=== PATIENT | female | born 1980 | race Caucasian/White ===

== ENCOUNTER → 2017-05-24 | Outpatient (CLI) | payer BC ==
[~2017-05-24] MED LIST: PREN-96 PO
[2017-05-24 09:40] LABS: Basophils # (auto) 0 uL; Basophils % (auto) 0.4 % (0.0-2.0); CONDITION Y; Eosinophils # (auto) 0.1 uL; Eosinophils % (auto) 0.9 % (0.0-7.0); Hematocrit 40.6 % (36.0-46.0); Hemoglobin 13.5 g/dL (12.2-16.2); Lymphocytes % (auto) 35.9 % (10.0-50.0); Mean Corpuscular Hemoglobin 30.8 pg (28.0-32.0); Mean Corpuscular Hgb Conc. 33.3 g/dL (32.0-36.0); Mean Corpuscular Volume 92.5 fL (80.0-100.0); Mean Platelet Volume 7.4 fL (7.4-10.4); Monocytes # (auto) 0.4 uL; Monocytes % (auto) 5.3 % (0.0-12.0); Neutrophils # (auto) 4.7 uL; Neutrophils % (auto) 57.5 % (37.0-80.0); Platelet Count (auto) 455 10^3/uL (140-450); Red Cell Distribution Width 12.9 % (11.6-16.0); White Blood Cell 8.2 10^3/uL (4.4-10.8)
[2017-05-24 09:53] LABS: Urine Bilirubin Negative (Negative); Urine Blood Negative /uL (Negative); Urine Color Yellow (Yellow); Urine Glucose Normal (Normal); Urine Ketone Negative (Negative); Urine Nitrite Negative (Negative); Urine RBC 1 /hpf (0 - 4); Urine Squamous Epithelial Cell MOD /hpf (<5); Urine Urobilinogen Normal (Negative); Urine pH 5.5 (5.0-8.0)
[2017-05-24 10:02] LABS: BUN/Creatinine Ratio 16.2; Bilirubin, Total 0.4 mg/dL (0.2-1.0); Calcium 9.1 mg/dL (8.5-10.1); Potassium 3.9 mmol/L (3.5-5.1); Total Protein 7.3 g/dL (6.4-8.2)
== END | disposition home or self-care (01) ==
LOC: LAB 09:16
PROVIDERS: ATTEND Internal Medicine
DX: K21.9 Gastro-esophageal reflux disease without esophagitis (principal); D72.89 Other specified disorders of white blood cells; D47.3 Essential (hemorrhagic) thrombocythemia
CPT/HCPCS: 36415; 80053; 80061; 81001; 84443; 85025

== ENCOUNTER → 2017-09-14 | Outpatient (CLI) | payer BC | END | disposition home or self-care (01) | LOC: LAB 12:02 | PROVIDERS: ATTEND Internal Medicine | DX: D47.3 Essential (hemorrhagic) thrombocythemia (principal) | CPT/HCPCS: 36415 ==